=== PATIENT | male | born 2000 | race Two or more races ===

== ENCOUNTER 2023-05-28 14:25 | Emergency (ER) | payer SELFPAY ==
[2023-05-28 14:30] VITALS: BP 133/77; PULSE 94; RESP 15; TEMP 36.8; O2SAT 98; BMI 22.3
--- NOTE | 2023-05-28 14:39 | XRR_ITS ---
PROCEDURE INFORMATION: Exam: XR Left Shoulder Exam date and time: 05/28/2023 2:52 PM Age: 23 years old Clinical indication: Injury or trauma; Fall; Blunt trauma (contusions or hematomas); Shoulder; Left; Additional info: Fall pain TECHNIQUE: Imaging protocol: Radiologic exam of the left shoulder. Views: 2 or more views. COMPARISON: No relevant prior studies available. FINDINGS: Bones/joints: Osseous structures are intact. Negative for fracture. Joint spaces are preserved. Soft tissues: Normal. XR/XR shoulder LT min 2V* [id number] IMPRESSION: No acute findings.
[2023-05-28 14:52] VITALS: BP 133/77; PULSE 123; RESP 16; O2SAT 96
--- NOTE | 2023-05-28 14:59 | ECG_ITS ---
[facility] Test Date: 2023-05-28 Pat Name: Graeme Perry Department: Room: Gender: Male Chief Of Hospital Medicine: : 2000 Requested By: Fer Grajeda Order Number: [id number] Jennifer MD: Diego Mosqueda M.D. Measurements Intervals [place] Rate: 100 P: 52 MI: 164 QRS: 62 QRSD: 89 T: 29 QT: 315 QTc: 406 Interpretive Statements SINUS TACHYCARDIA ABNORMAL RHYTHM ECG No previous ECG available for comparison Electronically Signed On 05-29-2023 11:27:18 CDT by Diego Mosqueda M.D. [id number]
--- NOTE | 2023-05-28 15:08 | ED_ITS ---
HPI - Medical Clearance General Chief complaint: Medical Clearance Stated complaint: GOT TAZED BY PD Time Seen by Provider: 05/28/23 14:34 History of Present Illness Patient presents to the ER by police. Patient was possibly resisting arrest and he was taken down and tased. Patient fell and had some scrapes on his knees also complaining of left shoulder pain. Otherwise patient has and has no complaints at this time. Related Information Allergies Allergy/AdvReac Type Severity Reaction Status Date / Time Penicillins Allergy ALGY-Hives Verified 05/28/23 14:34 Course Vital Signs Temperature 98.3 F 05/28/23 14:30 Pulse Rate 83 05/28/23 16:14 Respiratory Rate 16 05/28/23 16:14 Blood Pressure 136/80 05/28/23 16:14 Pulse Oximetry 98 05/28/23 16:14 Oxygen Delivery Method Room Air 05/28/23 14:30 MDM - Medical Clearance MDM Narrative Medical decision making narrative: Please bring patient in after teasing him to take him to the ground. Patient has multiple abrasions and complaint of left shoulder pain physical exam was performed Differential Diagnosis Differential diagnosis: Unlikely malfunction of patel catheter (Fit for confinement for police) Medical Records Attestation: I reviewed the patient's medical records. Lab Data Attestation: I reviewed the patient's lab results. 05/28/23 14:52 05/28/23 14:52 Labs: Lab Results 05/28/23 05/28/23 05/28/23 14:52 14:52 15:32 WBC 8.0 10^3/uL 10^3/uL (4.0-10.0) RBC 4.35 10^6/uL 10^6/uL (4.1-5.3) Hgb 13.8 g/dL g/dL (11.7-16.6) Hct 41.4 % L % (42.0-52.0) MCV 95.2 fl H fl (80-94) MCH 31.7 pg pg (28.0-34.0) MCHC 33.3 g/dL g/dL (30.0-36.0) RDW 13.6 % % (12.1-15.1) Plt Count 261 10^3/cmm 10^3/cmm (130-400) MPV 10.4 fL fL (7.4-10.4) Neut % (Auto) 70.6 % % Lymph % (Auto) 21.0 % % [place] % (Auto) 5.3 % % Eos % (Auto) 2.4 % % Baso % (Auto) 0.4 % % Neut # (Auto) 5.65 10^3/uL 10^3/uL (1.8-7.7) Lymph # (Auto) 1.7 10^3/uL 10^3/uL (0.8-4.8) [place] # (Auto) 0.4 10^3/uL 10^3/uL (0.2-0.9) Eos # (Auto) 0.2 10^3/uL 10^3/uL (0.0-0.8) Baso # (Auto) 0.0 10^3/uL 10^3/uL (0.0-0.1) Nucleated RBC % (auto) 0 % % Nucleated RBCs # 0.0 /100WBC /100WBC Sodium 141 mmol/L mmol/L (136-145) Potassium 3.7 mmol/L mmol/L (3.5-5.1) Chloride 102 mmol/L mmol/L (98-107) Carbon Dioxide 26 mmol/L mmol/L (22-29) Anion Gap 16.7 (5-19) BUN 12 mg/dL mg/dL (6-20) Creatinine 0.9 mg/dL mg/dL (0.7-1.2) GFR Calculation 104.6 mL/min mL/min (90-130) Glucose 187 mg/dL H mg/dL (65-115) Calculated Osmolality 297 mOsm/kg H mOsm/kg (285-295) Calcium 9.0 mg/dL mg/dL (8.5-10.5) Total Bilirubin 0.7 mg/dL mg/dL (0.15-1.2) AST 16 U/L U/L (0-40) ALT 15 U/L U/L (0-41) Alkaline Phosphatase 77 U/L U/L (40-130) Creatine Kinase 99 U/L U/L (39-308) Total Protein 6.6 g/dL g/dL (6.6-8.7) Albumin 4.6 g/dL g/dL (3.5-5.2) Globulin 2.0 g/dL g/dL (1.3-4.6) Urine Color Straw (Yellow) Urine Appearance Clear (CLEAR) Urine pH 7 (5-7) Ur Specific [place] 1.010 (1.005-1.030) Urine Protein Neg (Negative) Urine Glucose (UA) Norm (Normal) Urine Ketones Negative (Negative) Urine Blood Neg (Negative) Urine Nitrate Negative (Negative) Urine Bilirubin Neg (Negative) Urine Urobilinogen Norm mg/dL mg/dL (Negative) Ur Leukocyte Esterase Negative (Negative) Urine Opiates Screen Ur Barbiturates Screen Ur Phencyclidine Scrn Ur Amphetamines Screen U Benzodiazepines Scrn Urine Cocaine Screen U Marijuana (THC) Screen 05/28/23 15:32 WBC RBC Hgb Hct MCV MCH MCHC RDW Plt Count MPV Neut % (Auto) Lymph % (Auto) [place] % (Auto) Eos % (Auto) Baso % (Auto) Neut # (Auto) Lymph # (Auto) [place] # (Auto) Eos # (Auto) Baso # (Auto) Nucleated RBC % (auto) Nucleated RBCs # Sodium Potassium Chloride Carbon Dioxide Anion Gap BUN Creatinine GFR Calculation Glucose Calculated Osmolality Calcium Total Bilirubin AST ALT Alkaline Phosphatase Creatine Kinase Total Protein Albumin Globulin Urine Color Urine Appearance Urine pH Ur Specific [place] Urine Protein Urine Glucose (UA) Urine Ketones Urine Blood Urine Nitrate Urine Bilirubin Urine Urobilinogen Ur Leukocyte Esterase Urine Opiates Screen Negative ng/mL ng/mL (Negative) Ur Barbiturates Screen Negative ng/mL ng/mL (Negative) Ur Phencyclidine Scrn Negative ng/mL ng/mL (Negative) Ur Amphetamines Screen Negative ng/mL ng/mL (Negative) U Benzodiazepines Scrn Negative ng/mL ng/mL (Negative) Urine Cocaine Screen Negative ng/mL ng/mL (Negative) U Marijuana (THC) Screen Positive ng/mL H ng/mL (Negative) ECG Data Attestation: I personally reviewed and interpreted this EKG as follows: ECG interpretation date: 05/28/23 ECG interpretation time: 14:59 Prior ECG tracings: not available for review Interpretation: EKG shows ventricular rate of 100 bpm, FL interval 164, QRS duration 89, QTc of 372, sinus tachycardia with no ST-T wave changes Discharge Plan Discharge Patient Disposition: Home Clinical Impression: In police custody Condition: Stable Discharge Orders: Discharge ED (Routine); Ordered 05/28/23 Ordered By: Fer Grajeda Patient Instructions: Normal Exam (ED) Activity Restrictions/Additional Instructions: Patient has been examined and found fit for confinement by police. Patient will be released back in police custody. ROS General Reports: 10 or more systems reviewed and unremarkable except in HPI and below Physical Exam Const COMMON NORMALS: no acute distress, average body habitus, patient oriented x3, no limitations, healthy appearing, alert and well nourished HENNV COMMON NORMALS: normocephalic, atraumatic, hearing grossly normal bilaterally, Normal external nose present and moist oral mucous membranes HEAD & SCALP: normocephalic and atraumatic NOSE: Normal external nose present Neck/C-Spine COMMON NORMALS: full ROM, no lymphadenopathy, no meningeal signs, no JVD and Thyroid normal THYROID: Thyroid normal Chest COMMONS NORMALS: normal inspection of the chest and normal palpation of entire chest wall Resp COMMON NORMALS: normal respiratory effort, No retractions, No use of accessory muscles and clear to auscultation bilaterally AUSCULTATION: clear to auscultation bilaterally Cardio COMMON NORMALS: no JVD, regular rate, regular rhythm, S1 normal heart sound present, S2 normal heart sound present, No gallops present (Cardio), No clicks present (Cardio) and No rub (Cardio) RATE: regular rate RHYTHM: regular rhythm HEART SOUNDS: S1 normal heart sound present and S2 normal heart sound present GI COMMON NORMALS: Normal to inspection, nondistended, normoactive bowel sounds present, Soft to palpation, non-tender, No hepatosplenomegaly present and no mas ses PALPATION: Yes Soft to palpation and Yes No hepatosplenomegaly present COMMON NORMALS: Yes no CVA tenderness BLADDER/KIDNEY EXAM: Yes no CVA tenderness Back/Pelvis COMMON NORMALS: no CVA tenderness Neuro COMMON NORMALS: patient oriented x3 SENSORIUM/ORIENTATION: Yes alert MENINGEAL SIGNS: Yes no meningeal signs A&P Assessment & Plan (1) In police custody: Status: Acute Code(s): Z65.3 - Problems related to other legal circumstances Plan Patient has been examined and found fit for confinement. Patient will be released back to police custody.
[2023-05-28 15:16] LABS: Basophils % 0.4 %; Eosinophils # 0.2 10^3/uL (0.0-0.8); Eosinophils % 2.4 %; Hematocrit 41.4 % (42.0-52.0); Hemoglobin 13.8 g/dL (11.7-16.6); Lymphocytes # 1.7 10^3/uL (0.8-4.8); Mean Corpuscular HGB Conc 33.3 g/dL (30.0-36.0); Mean Corpuscular Hemoglobin 31.7 pg (28.0-34.0); Mean Corpuscular Volume 95.2 fl (80-94); Mean Platelet Volume 10.4 fL (7.4-10.4); Monocytes # 0.4 10^3/uL (0.2-0.9); Monocytes % 5.3 %; Neutrophils # 5.65 10^3/uL (1.8-7.7); Neutrophils % 70.6 %; Nucleated Red Blood Cells % 0 %; Platelet Count 261 10^3/cmm (130-400); Red Blood Count 4.35 10^6/uL (4.1-5.3); Red Cell Distribution Width 13.6 % (12.1-15.1)
[2023-05-28 15:37] LABS: Alanine Aminotransferase 15 U/L (0-41); Albumin Level 4.6 g/dL (3.5-5.2); Alkaline Phosphatase 77 U/L (40-130); Anion Gap 16.7 (5-19); Aspartate Amino Transferase 16 U/L (0-40); Blood Urea Nitrogen 12 mg/dL (6-20); Carbon Dioxide 26 mmol/L (22-29); Chloride 102 mmol/L (98-107); Creatine Phosphokinase 99 U/L (39-308); Glomerular Filtration Rate 104.6 mL/min (90-130); Glucose 187 mg/dL (65-115); Osmolality Calculated 297 mOsm/kg (285-295); Potassium 3.7 mmol/L (3.5-5.1); Sodium 141 mmol/L (136-145); Total Bilirubin 0.7 mg/dL (0.15-1.2); Total Protein 6.6 g/dL (6.6-8.7)
[2023-05-28 15:41] LABS: Add Urine Microscopic? NO
[2023-05-28 15:42] LABS: Bilirubin Urine Neg (Negative); Blood Urine Neg (Negative); Glucose Urine UA Norm (Normal); Ketones Urine Negative (Negative); Leukocyte Esterase Urine Negative (Negative); Nitrate Urine Negative (Negative); Protein Urine Neg (Negative); Urine Appearance Clear (CLEAR); Urine Color Straw (Yellow); Urobilinogen Urine Norm (Negative); pH Urine 7 (5-7)
[2023-05-28 15:44] LABS: Charge for UA Resulting for Rev
[2023-05-28 15:49] LABS: Amphetamines Screen Urine Negative (Negative); Barbiturates Screen Urine Negative (Negative); Benzodiazepines Screen Urine Negative (Negative); Cocaine Screen Urine Negative (Negative); Opiate Screen Urine Negative (Negative); PCP Screen Urine Negative (Negative); THC Screen Urine Positive (Negative)
[2023-05-28 16:14] VITALS: BP 136/80; PULSE 83; RESP 16; O2SAT 98
== END 2023-05-28 16:15 | disposition home or self-care (01) ==
PROVIDERS: Emergency Provider Emergency Medicine
DX: S80.212A Abrasion, left knee, initial encounter (principal); S80.211A Abrasion, right knee, initial encounter; M25.512 Pain in left shoulder; Y35.833A Legal intervention involving a conducted energy device, suspect injured, initial encounter
CPT/HCPCS: 36415; 73030; 80053; 80306; 81003; 82550; 85025; 93005; 99285